=== PATIENT | female | born 1975 | race Caucasian/White ===

== ENCOUNTER 2024-02-25 18:34 | Emergency (ER) | payer OTHER, SELFPAY ==
[2024-02-25 18:37] VITALS: BP 153/86
[2024-02-25 19:08] VITALS: BMI 36.3
[2024-02-25 19:11] VITALS: BP 165/84
--- NOTE | 2024-02-25 19:30 | ED.GENMED ---
History of Present Illness
General
Chief Complaint: Breathing Problem
Source: patient
Exam Limitations: none
Time Seen by Provider: 02/25/24 19:05
History of Present Illness
History of Present Illness:
48-year-old female with history of anemia presents complaining of shortness of breath worse with exertion over the past week getting worse. She denies associated chest pain. She denies any significant leg swelling. She feels as though her
shortness of breath gets worse when she lays flat. No recent travel or surgery. She does not smoke. No leg swelling or calf pain. No vomiting. No other complaints at this time. She denies dark stools. She has been having some red blood in her
mucus when she blows her nose on the tissue. But there is no ongoing nosebleed.
Past History
Past History
ED Past Medical History: Asthma (Exercise induced), HTN, Psychiatric (anxiety, ) and Other (Migraines, cirrhosis, GI bleeding, Anemia, Hemachromatosis, varices,)
ED Past Surgical History: None and Other (Breast augmentation, esophagel banding)
Social History
Tobacco: Former smoker
Alcohol: Former
Drug: None
Personal:
Living: with family
Employment: Employed
Family History
Family History: Other (Noncontributory)
Phy Exam
Physical Exam
Physical Exam:
General: Well-appearing female no acute respiratory distress
HEENT: Normocephalic atraumatic
Heart: Regular rate and rhythm no murmurs
Lungs: Clear no wheeze
Abdomen is soft nontender nondistended
Extremities: No cyanosis
Scores
Heart Failure Risk
Heart Failure Risk Score: Not Applicable
Course
Orders/Labs/Results
Orders:
Orders
02/25/24 19:23
EKG [Electrocardiogram (*1)] Urgent
Reason for Study: Shortness of Breath
EKG- Treatment ONCE
02/25/24 19:24
CMP [Comprehensive Metabolic Panel] Urgent
Complete Blood Count/With Diff Urgent
NT-proBNP Urgent
TSH Urgent
Troponin I Urgent
02/25/24 19:37
Electrocardiogram (*1) Urgent
Reason for Study: Chest Pain
02/25/24 19:46
CT Pe/abd/pel W Urgent
Reason For Exam: sob
Abnormal Lab Results
02/25/24
19:24
MCH 32.6 H pg
(27.0-31.0)
Plt Count 108 L 10^3/uL
(130-400)
MPV 11.0 H fL
(7.4-10.4)
Monocytes % 10.3 H %
(1.7-9.3)
Carbon Dioxide 21 L mmol/L
(22-30)
Glucose 138 H mg/dl
(70-99)
Total Bilirubin 1.6 H mg/dl
(0.2-1.3)
AST 79 H U/L
(14-36)
ALT 51 H U/L
(0-35)
TSH 0.36 L uIU/ml
(0.47-4.68)
02/25/24 19:24
02/25/24 19:24
Vital Signs
Initial and Last Documented VS:
Initial Vital Signs
Temp Pulse Resp BP Pulse Ox
98.1 F 88 16 153/86 96
02/25/24 18:37 02/25/24 18:37 02/25/24 18:37 02/25/24 18:37 02/25/24 18:37
Last Documented Vital Signs
Temp Pulse Resp BP Pulse Ox
98.1 F 92 22 142/70 95
02/25/24 18:37 02/25/24 21:30 02/25/24 20:45 02/25/24 21:22 02/25/24 21:30
MDM/Problems Addressed
Differential Diagnosis Includes:
Shortness of breath. Consider anemia versus electrolyte abnormality versus CHF versus pneumonia
Will check labs. Chest x-ray pending. Not hypoxic nor she tachycardic no PE risk factors.
*Critical Care Note
Total Time (30-74mins, 75-104mins- exclusive of procedures): Not Applicable
Update Note
Update Note:
Workup here largely unremarkable. Troponin within normal limits BNP negative CT of chest abdomen pelvis negative for PE but does demonstrate large amount of stool. Patient has been nontoxic here. She has stable liver functions. Recommended
follow-up with family doctor and/or cardiology given dyspnea on exertion
ED Attending Note
-
Portions of this chart may have been created with voice recognition software.� Occasional wrong word or��sound alike� substitutions may have occurred due to the inherent limitations of voice recognition software.
Discharge Plan
Departure
Patient Disposition: Home (Routine Discharge)
Date of Disposition: 02/25/24
Time of Disposition: 21:48
Patient with high blood pressure during this ER visit?: No
Discharge Problem:
Fatigue
Instructions: Shortness of Breath (Dyspnea) (DC)
Prescriptions:
No Action
bupropion HCl 100 MG tablet sustained-release 12 hr
100 mg PO DAILY
escitalopram oxalate 5 MG tablet
5 mg PO HS
thyroid (pork) [[place] Thyroid] 60 MG tablet
60 mg PO DAILY
alprazolam 0.5 MG tablet
0.5 mg PO HS PRN (Reason: Sleep / Anxiety)
Patient Comments:
12/05/2020: last filled 10/30/20, 60 tabs for 30 days from [facility]
dextroamphetamine-amphetamine [Adderall] 20 mg Tablet
20 mg PO TID PRN (Reason: Mental Health )
omeprazole 20 mg Capsule,Delayed Release(Dr/Ec)
20 mg PO DAILY
albuterol sulfate 90 mcg/actuation Hfa Aerosol Inhaler
2 puff INHALATION Q6H PRN (Reason: WHEEZING)
hydrochlorothiazide 12.5 mg Tablet
25 mg PO DAILY
progesterone
1 unit topical DAILY
Referrals:
Matt Wright DO [Family Provider] -
Activity Restrictions/Additional Instructions:
Please return here for worsening symptoms. Consider using MiraLAX or magnesium citrate for constipation. Follow-up with your family doctor or cardiology team otherwise
Interventions
Interventions:
*Risk Screen - Suicide Last Done: 02/25/24 19:23
*General Assessment Last Done: 02/25/24 19:23
*Neglect/Abuse Screening Last Done: 02/25/24 19:23
*ED COVID-19 Vaccine History Last Done: 02/25/24 19:23
ED- Cardiac Assessment Last Done: 02/25/24 19:31
ED- Pulmonary Assessment Last Done: 02/25/24 19:31
Discharge Date and Time
Print Language: [place]
[2024-02-25 19:36] LABS: % Basophils 0.5 % (0-2); % Eosinophils 0.7 % (0-6); % Immature Granulocytes 0.2 % (0-0.5); % Lymphocytes 20.7 % (20.5-51.1); % Monocytes 10.3 % (1.7-9.3); % Neutrophils 67.6 % (42.2-75.2); Absolute Lymphocytes 1.2 10^3/uL (1.2-3.4); Absolute Monocytes 0.6 10^3/uL (0.1-0.6); Absolute Neutrophils 3.9 10^3/uL (1.4-6.5); Hematocrit 43.5 % (37.0-47.0); Hemoglobin 15.9 g/dL (12.0-16.0); Mean Corp Hgb Conc. 36.6 g/dL (33.0-37.0); Mean Corpuscular Hgb 32.6 pg (27.0-31.0); Mean Corpuscular Volume 89.1 fL (81.0-99.0); Nucleated Red Blood Cells % 0 %; Platelet Count 108 10^3/uL (130-400); Red Blood Cell Count 4.88 10^6/uL (4.20-5.40); White Blood Cell Count 5.8 10^3/uL (4.8-10.8)
[2024-02-25 19:49] LABS: ALT (SGPT) 51 U/L (0-35); AST (SGOT) 79 U/L (14-36); Albumin 3.9 g/dl (3.5-5.0); Alkaline Phosphatase 124 U/L (38-126); Blood Urea Nitrogen 8 mg/dl (7-17); Calcium 9.2 mg/dl (8.4-10.2); Carbon Dioxide 21 mmol/L (22-30); Chloride 106 mmol/L (98-107); Estimated Creatinine Clearance > 125 ml/min; Glucose 138 mg/dl (70-99); Potassium 3.5 mmol/L (3.5-5.1); Sodium 139 mmol/L (135-145); Total Bilirubin 1.6 mg/dl (0.2-1.3); Total Protein 6.9 g/dl (6.3-8.2); eGFR > 60.00
[2024-02-25 19:54] LABS: NT-proBNP < 20.0 pg/ml; Troponin I 0.015 ng/ml
[2024-02-25 20:01] VITALS: BP 155/90
[2024-02-25 20:21] LABS: TSH 0.36 uIU/ml (0.47-4.68)
[2024-02-25 21:22] VITALS: BP 142/70
== END 2024-02-25 22:08 | disposition home or self-care (01) ==
LOC: EMR 18:34
PROVIDERS: Physician Assistant; EMERGENCY PHYSICIAN Student in an Organized Health Care Education/Training Program; FAMILY PHYSICIAN Family Medicine
DX: R53.83 Other fatigue (principal); J45.909 Unspecified asthma, uncomplicated; I10 Essential (primary) hypertension; Z87.891 Personal history of nicotine dependence; Z86.2 Personal history of diseases of the blood and blood-forming organs and certain disorders involving the immune mechanism
CPT/HCPCS: 99284; 71275; 74177; 80053; 83880; 84443; 84484; 85025; 93005; Q9967

== ENCOUNTER → 2024-05-24 10:10 | Outpatient (REF) | payer OTHER, SELFPAY ==
[2024-05-24 15:57] LABS: % Basophils 0.8 % (0-2); % Immature Granulocytes 0.3 % (0-0.5); % Lymphocytes 24.9 % (20.5-51.1); % Monocytes 11.6 % (1.7-9.3); % Neutrophils 60.4 % (42.2-75.2); Absolute Eosinophils 0.1 10^3/uL (0-0.7); Absolute Monocytes 0.5 10^3/uL (0.1-0.6); Absolute Neutrophils 2.4 10^3/uL (1.4-6.5); Hematocrit 42.5 % (37.0-47.0); Hemoglobin 15.2 g/dL (12.0-16.0); Mean Corp Hgb Conc. 35.8 g/dL (33.0-37.0); Mean Corpuscular Hgb 32.7 pg (27.0-31.0); Mean Corpuscular Volume 91.4 fL (81.0-99.0); Mean Platelet Volume 12.3 fL (7.4-10.4); Nucleated Red Blood Cells % 0 %; Platelet Count 99 10^3/uL (130-400); Red Blood Cell Count 4.65 10^6/uL (4.20-5.40)
[2024-05-24 15:59] LABS: ALT (SGPT) 54 U/L (0-35); AST (SGOT) 87 U/L (14-36); Albumin 3.8 g/dl (3.5-5.0); Alkaline Phosphatase 116 U/L (38-126); Blood Urea Nitrogen 11 mg/dl (7-17); Calcium 9.4 mg/dl (8.4-10.2); Carbon Dioxide 21 mmol/L (22-30); Chloride 106 mmol/L (98-107); Glucose 105 mg/dl (70-99); Potassium 3.5 mmol/L (3.5-5.1); Sodium 136 mmol/L (135-145); Total Bilirubin 1.8 mg/dl (0.2-1.3); Total Protein 6.7 g/dl (6.3-8.2); eGFR > 60.00
[2024-05-24 16:00] LABS: INR 1.15
[2024-05-26 13:33] LABS: AFP Male/Tumor Marker 5 ng/mL (0-9)
== END ==
LOC: HWLAB 10:10
PROVIDERS: ATTENDING PHYSICIAN Internal Medicine; FAMILY PHYSICIAN Family Medicine
DX: K74.60 Unspecified cirrhosis of liver (principal)
CPT/HCPCS: 36415; 80053; 82105; 85025; 85610

== ENCOUNTER → 2024-06-04 14:49 | Outpatient (REF) | payer OTHER, SELFPAY | LOC: HWRAD 14:49 | PROVIDERS: ATTENDING PHYSICIAN Internal Medicine; FAMILY PHYSICIAN Family Medicine | DX: K74.60 Unspecified cirrhosis of liver (principal) | CPT/HCPCS: 76700 ==

== ENCOUNTER → 2024-06-07 06:18 | Day surgery (SDC) | payer OTHER, SELFPAY | LOC: GI 06:18 | PROVIDERS: ATTENDING PHYSICIAN Internal Medicine | PROC: 0DJ08ZZ Inspection of Upper Intestinal Tract, Via Natural or Artificial Opening Endoscopic (ICD-10-PCS; 2024-06-07) | DX: I85.10 Secondary esophageal varices without bleeding (principal); K22.2 Esophageal obstruction; K44.9 Diaphragmatic hernia without obstruction or gangrene | CPT/HCPCS: 43235 ==

== ENCOUNTER → 2024-08-17 13:57 | Outpatient (REF) | payer OTHER, SELFPAY | LOC: HWRCS 13:57 | PROVIDERS: ATTENDING PHYSICIAN Family Medicine | DX: R01.1 Cardiac murmur, unspecified (principal) | CPT/HCPCS: 93306 ==

== ENCOUNTER → 2024-11-08 12:09 | Outpatient (REF) | payer OTHER, SELFPAY | LOC: RCS 12:09 | PROVIDERS: ATTENDING PHYSICIAN Internal Medicine Cardiovascular Disease; FAMILY PHYSICIAN Family Medicine | DX: R06.02 Shortness of breath (principal) | CPT/HCPCS: 78452; 93017; A9500 ==

== ENCOUNTER → 2025-02-18 19:55 | Outpatient (REF) | payer BC, SELFPAY | LOC: MRI 3T 19:55 | PROVIDERS: ATTENDING PHYSICIAN Internal Medicine Transplant Hepatology; FAMILY PHYSICIAN Family Medicine | DX: K74.60 Unspecified cirrhosis of liver (principal) | CPT/HCPCS: 74183; A9581 ==